=== PATIENT | male | born 1930 | race Caucasian/White ===

== ENCOUNTER 2016-09-07 12:42 | Inpatient (IN) | payer OTHER, MEDICARE ==
[~2016-09-07] VITALS: Ht 182.9 cm; Wt 72.6 kg
[~2016-09-07 12:42] MED LIST: ATENOLOL50 MG PO; AUGMENTIN 875 M1 TAB PO; BISAC-EVAC10 M1 PR; BISACODYL5 M1 PO; COUMADIN 2.5 M2.5 MG PO; DONEPEZIL HCL10 M1 PO; DONEPEZIL HYDROC5 MG PO; FENOFIBRATE134 M1 PO; FERROUS SULFAT325 M2 PO; FINASTERIDE5 M1 PO; FUROSEMIDE20 MG PO; GABAPENTIN100 M2 PO; GARLIC OIL1000 M1 PO; K-TAB ER20 MEQ PO; LOVASTATIN10 M1 PO; METOPROLOL SUCC25 M1 PO; MIRALAX119 GM PO; PERCOCET 5-3251 EACH PO; SENNA-TIME S T1 EACH PO; TOPROL XL50 M1 PO; TRAMADOL HCL50 M1; TYLENOL #31 TAB PO; TYLENOL325 M1 PO; VESICARE5 M1 PO; ZESTRIL20 M1 PO
--- NOTE | 2016-09-07 15:17 | ED GI/GU/ABDOMINAL COMPLAINT ---
History of Present Illness General Chief Complaint: Nausea, Vomiting, Diarrhea Stated Complaint: DIARRHEA SINCE THIS AM, "ON TOILET SINCE 7:30AM Source: patient, family, old records Exam Limitations: dementia Vital Signs & Intake/Output Vital Signs & Intake/Output Vital Signs Date Time Temp Pulse Resp B/P Pulse O2 O2 Flow FiO2 Ox Delivery Rate 09/08 0846 138/68 09/08 0832 97.4 65 20 140/80 96 Room Air 09/07 2352 97.3 65 20 138/86 97 Room Air 09/07 2310 98.0 75 18 151/74 92 Room Air 09/07 2047 97.2 63 18 179/87 99 Room Air 09/07 1900 Room Air 09/07 1627 98.2 63 18 170/90 100 Room Air 09/07 1431 97.8 69 18 146/89 99 09/07 1249 97.7 70 20 153/76 97 Room Air ED Intake and Output 09/08 0000 09/07 1200 Intake Total 500 Output Total 100 Balance 400 Intake, IV 500 Output, Urine 100 Patient 160 lb Weight Allergies Coded Allergies: NO KNOWN ALLERGIES (02/09/16) Reconcile Medications Acetaminophen (Tylenol) 325 MG TABLET 650 MG PO Q4P PRN PAIN SCALE 1-3 (MILD) Donepezil HCl 10 MG TABLET 1 TAB PO QHS DEMENTIA (Reported) Fenofibrate,Micronized (Fenofibrate) 134 MG CAPSULE 1 CAP PO DAILY CHOLESTEROL (Reported) Ferrous Sulfate 325 MG TABLET.DR 325 MG PO DAILY SUPPLEMENT Finasteride 5 MG TABLET 1 TAB PO DAILY PROSTATE (Reported) Gabapentin 100 MG CAPSULE 1 CAP PO QPM NERVE PAIN (Reported) Garlic (Garlic Oil) 1,000 MG CAPSULE 1 CAP PO DAILY SUPPLEMENT (Reported) Lovastatin 10 MG TABLET 1 TAB PO QPM CHOLESTEROL (Reported) Metoprolol Succinate 25 MG TAB 1 TAB PO DAILY BP (Reported) Potassium Chloride (K-Tab ER) 20 MEQ TABLET.ER 1 TAB PO DAILY SUPPLEMENT ( Reported) Solifenacin Succinate (Vesicare) 5 MG TABLET 1 TAB PO DAILY BLADDER (Reported ) Triage Note: PT TO TRIAGE WITH HIS DAUGHTER, DAUGHTER STATES THAT PT HAS DEMENTIA AND THAT ALL MORNING HE HAS BEEN ON TOILET NON STOP TRYING TO MOVE HIS BOWELS AND CAN'T. 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 yes HPI: Patient presents for evaluation of multiple trips to the bathroom with "mixed" stool and feelings of dysuria and a lot of drooling. The patient has dementia and cannot provide history. syptoms have been severe, frequent and debilitating. There has been no associated fever, cold symptoms, dyspnea, recent travel, known ill contacts or medication changes. He does have a history of constipation although not recently. daughter concerned that the pt has become dehydrated (he has been too weak to ambulate on his own). nothing seems to make him better. Past History Travel History Traveled to [place] past 21 day No Medical History Any Pertinent Medical History? see below for history Neurological: dementia EENT: NONE Cardiovascular: CHF, hypertension, hyperlipidemia, PACEMAKER Respiratory: NONE Gastrointestinal: diverticulosis, no polyps GI BLEED Hepatic: NONE Renal: NONE Musculoskeletal: NONE Psychiatric: NONE Endocrine: NONE Blood Disorders: NONE Cancer(s): SKIN CANCER Other Medical Hx: hyperlipidemia, chronic venous insufficiency and right heart dysfunction and dementia. History of MRSA: No History of VRE: No History of CDIFF: No Pneumonia Vaccine: 07/16/08 Tetanus Vaccine: 04/23/15 Surgical History Surgical History: SKIN CANCER REMOVAL pacemaker Psychosocial History Who do you live with Spouse Services at Home Physical Therapy What is your primary language Sinhala Tobacco Use: Never used ETOH Use: denies use Illicit Drug Use: denies illicit drug use Family History Hx Contributory? No Review of Systems Review of Systems Constitutional: Reports: no symptoms. EENTM: Reports: no symptoms. Respiratory: Reports: no symptoms. Cardiovascular: Reports: no symptoms. GI: Reports: see HPI. Genitourinary: Reports: no symptoms. Musculoskeletal: Reports: no symptoms. Skin: Reports: no symptoms. Neurological/Psychological: Reports: no symptoms. Hematologic/Endocrine: Reports: no symptoms. Immunologic/Allergic: Reports: no symptoms. All Other Systems: Reviewed and Negative Physical Exam Physical Exam Gastrointestinal: SEE BELOW Comments: Gen.: Well-nourished, well-developed, no acute respiratory distress. Head: Normocephalic, atraumatic. Eyes: Normal inspection bilaterally Ears: Normal inspection bilaterally Nose: Normal inspection Throat/mouth : Moist mucosa Neck: Supple, full range of motion, no goiter Heart: Regular rate and rhythm, no murmurs rubs or gallops Lungs: Clear to auscultation bilaterally with normal air entry Chest: Nontender Back: Normal range of motion Abdomen: Soft, nontender, nondistended, normal bowel sounds Extremities: Normal range of motion grossly, equal radial pulses, no cyanosiS Neurologic: Cranial nerves grossly intact, speech is clear Skin: warm and dry Psychiatric: Calm, cooperative, no apparent delusions or hallucinations Core Measures ACS in differential dx? No Severe Sepsis Present: No Septic Shock Present: No Progress Differential Diagnosis: bowel obstruction, colon cancer, diverticulitis, ischemic bowel, inflamm bowel dis, perforated viscous Plan of Care: Orders Procedure Date/time Status Clear Liquid Diet 09/08 B Active Code Status 09/08 1056 Active CBC WITHOUT DIFFERENTIAL 09/08 06 Complete BASIC ELECTROLYTES PLUS BUN&CR 09/08 0600 Complete Wound Care/Dressing 09/08 0039 Active Turn and Reposition 09/08 0039 Active Skin Integrity Protocol 09/08 0039 Active Precautions 09/08 0039 Active Lab Add-on Test 09/08 0038 Active CULTURE,STOOL 09/08 0031 Active PT Evaluate & Treat 09/08 0029 Active Pathway - chart 09/08 0029 Active House Staff 09/08 0029 Active Patient Data 09/08 0029 Active Code Status 09/08 0029 Complete Therapeutic Activities 09/08 UNK Complete Gait Training 09/08 UNK Complete House Staff 09/08 UNK Active VTE Mechanical Prophylaxis 09/08 UNK Active Patient Safety Monitor 09/08 UNK Active Teach/Educate 09/07 234 Active Nutritional Intake, Monitor 09/07 2347 Active Isolation 09/07 2347 Active Patient Care Conference 09/07 2347 Active EKG 09/07 2322 Active Patient Data 09/07 2146 Active OXYGEN SETUP (GEN) 09/07 2028 Active Saline Lock 09/07 2028 Active Vital Signs 09/07 2028 Active Activity/Ambulation 09/07 2028 Active Code Status 09/07 2028 Complete Admit to inpatient 09/07 1939 Active Intake & Output 09/07 1550 Active MAGNESIUM 09/07 1530 Complete URINALYSIS 09/07 1516 Complete LIPASE 09/07 1516 Complete COMPREHENSIVE METABOLIC PANEL 09/07 1516 Complete CBC WITHOUT DIFFERENTIAL 09/07 1516 Complete Current Medications Sig/Matthew Start time Last Medication Dose Stop Time Status Admin Atorvastatin Calcium 10 MG QPM 09/08 2200 AC (Lipitor) Donepezil HCl 10 MG QPM 09/08 2200 AC (Aricept) Gabapentin 100 MG QPM 09/08 2200 AC (Neurontin) Magnesium Sulfate 1 GM Q2H 09/08 1100 AC (Mag Sulfate) 09/08 1459 Dextrose/Water 100 ML (D5W) Olanzapine 2.5 MG Q8 PRN 09/08 1100 AC (Zyprexa 2.5MG) Acetaminophen 650 MG Q4P PRN 09/08 0045 AC (Tylenol) Laboratory Tests 09/08/16 0630: Anion Gap 10, Estimated GFR > 60, BUN/Creatinine Ratio 18.0, CBC w Diff NO MAN DIFF REQ, RBC 4.74, MCV 99.2 H, MCH 32.8 H, RDW 14.8 H, MPV 8.5, Gran % 60.6, Lymphocytes % 26.1, Monocytes % 10.6 H, Eosinophils % 2.4, Basophils % 0.3, Absolute Granulocytes 4.5, Absolute Lymphocytes 1.9, Absolute Monocytes 0.8 H, Absolute Eosinophils 0.2, Absolute Basophils 0, PUBS MCHC 33.1 09/07/16 1545: Urine Color YEL, Urine Clarity CLEAR, Urine pH 6.5, Ur Specific [place] 1.020, Urine Protein NEG, Urine Ketones NEG, Urine Nitrite NEG, Urine Bilirubin NEG, Urine Urobilinogen 2.0 H, Ur Leukocyte Esterase NEG, Ur Microscopic EXAM NOT REQUIRED, Urine Hemoglobin NEG, Urine Glucose NEG 09/07/16 1530: Anion Gap 10, Estimated GFR > 60, BUN/Creatinine Ratio 19.1, Glucose 83, Calcium 9.2, Magnesium 1.7, Total Bilirubin 0.9, AST 23, ALT 26, Alkaline Phosphatase 52 , Total Protein 6.9, Albumin 3.6, Globulin 3.3, Albumin/Globulin Ratio 1.1, Lipase 175, CBC w Diff NO MAN DIFF REQ, RBC 4.86, MCV 98.6 H, MCH 32.9 H, RDW 14.4, MPV 7.3 L, Gran % 77.0 H, Lymphocytes % 14.6 L, Monocytes % 7.8, Eosinophils % 0.5, Basophils % 0.1, Absolute Granulocytes 7.1 H, Absolute Lymphocytes 1.3, Absolute Monocytes 0.7 H, Absolute Eosinophils 0, Absolute Basophils 0, PUBS MCHC 33.3 Microbiology 09/08 0031 STOOL: Stool Culture - ORD Initial ED EKG: none Comments: 09/07/2016 6:49:13 PM patient's case discussed with Dr. Thibodeaux. To be admitted. Departure Departure Disposition: STILL A PATIENT Condition: Stable Clinical Impression Primary Impression: Diverticulitis large intestine Qualifiers: Diverticulitis bleeding: without bleeding Diverticulitis complication: without perforation or abscess Qualified Code: K57.32 - Diverticulitis of large intestine without perforation or abscess without bleeding Secondary Impressions: Gait instability, Weakness generalized Referrals: BARBARA ZHU,ELIZABETH Esparza (PCP/Family) Departure Forms: Customer Survey General Discharge Information
[2016-09-07 15:37] LABS: ABSOLUTE BASOPHIL COUNT 0 /CUMM (0.0-0.2); ABSOLUTE EOSINOPHIL COUNT 0 /CUMM (0.0-0.7); ABSOLUTE GRANULOCYTE CT 7.1 /CUMM (1.4-6.5); ABSOLUTE LYMPH COUNT 1.3 /CUMM (1.2-3.4); ABSOLUTE MONOCYTE COUNT 0.7 /CUMM (0.10-0.60); BASOPHIL % 0.1 % (0.0-2.0); EOSINOPHIL % 0.5 % (0-5); MEAN CORPUSCULAR HGB 32.9 PG (27.0-31.0); MEAN CORPUSCULAR HGB CONC 33.3 G/DL (33.0-37.0); MEAN CORPUSCULAR VOLUME 98.6 FL (80.0-94.0); MEAN PLATELET VOLUME 7.3 FL (7.4-10.4); PLATELET COUNT 186 /CUMM (130-400); RBC DISTRIBUTION WIDTH 14.4 % (11.5-14.5); RED BLOOD CELL CT 4.86 /CUMM (4.70-6.10); WHITE BLOOD CELL COUNT 9.3 /CUMM (4.8-10.8)
--- NOTE | 2016-09-07 17:10 | CT SCAN REPORT ---
EXAMINATION: CT ABDOMEN AND PELVIS WITH CONTRAST CLINICAL INFORMATION: Frequent bowel movements. Dysuria. COMPARISON: CT abdomen and pelvis without contrast 12/23/2015. TECHNIQUE: Multidetector volumetric imaging was performed of the abdomen and pelvis before and after the IV administration of 94 mL of Optiray 320 intravenous contrast. Sagittal and coronal reformatted images were obtained on the technologist's workstation. DLP: 372 mGy-cm FINDINGS: LUNG BASES: Evaluation of the included lung bases demonstrates mild cardiomegaly. No pleural or pericardial effusions are identified. There are partially visualized cardiac pacemaker wires within the right atrium and right ventricle. There is minimal dependent bibasilar atelectasis. LIVER, GALLBLADDER, AND BILIARY TREE: There is diffuse low-attenuation of the liver parenchyma, indicative of diffuse hepatic steatosis. Within the inferior right hepatic lobe, there is a 2.2 x 2.6 cm fluid attenuating lesion, favored to represent a small hepatic cyst. There is an additional 0.6 cm hypoattenuating lesion within the left hepatic lobe, also favored to represent a small hepatic cyst. Within the subcapsular region of segment 3 of the liver, there is a 1.0 cm enhancing lesion (series 2, image 19). This lesion is incompletely characterized on this examination but could reflect a small flash filling hemangioma. The gallbladder is physiologically distended. A punctate hyperdense focus layering dependently within the gallbladder lumen could reflect artifact versus a gallstone. No gallbladder wall thickening or pericholecystic inflammatory changes are identified. PANCREAS: Unremarkable. SPLEEN: Unremarkable. ADRENAL GLANDS: Thickening of the bilateral adrenal glands, left greater than right, not significantly changed relative to the prior examination. KIDNEYS AND URETERS: Evaluation of the bilateral kidneys and renal collecting systems is notable for a 1.9 cm simple renal cortical cyst arising from the midpole of the left kidney. The kidneys are otherwise symmetric in size and enhance homogeneously, without solid parenchymal lesions. No renal or ureteral stones are identified and there is no hydroureteronephrosis of either kidney or renal collecting system. BLADDER: Unremarkable. GASTROINTESTINAL TRACT: Normal anatomic orientation of the stomach relative to the duodenum. Normal caliber of abdominal and pelvic bowel loops, without evidence of obstruction or ileus. No circumferential bowel wall thickening with surrounding inflammatory changes to suggest an underlying infectious or inflammatory enterocolitis. Nonvisualization of the appendix, which may be surgically absent. Pancolonic diverticulosis, most significant along the descending and rectosigmoid colon. There is a mild circumferential thickening with mild inflammatory changes along a segment of the sigmoid colon, spanning approximately 2 cm in length within the right lower abdomen. This could reflect a developing acute sigmoid diverticulitis. No organizing intra-abdominal fluid collections or free intraperitoneal air. ABDOMINAL WALL: Small fat-containing bilateral inguinal hernias. LYMPH NODES: No significant abdominal or pelvic adenopathy. VASCULAR: Scattered atherosclerosis of the abdominal aorta and its branching vessels. Redemonstrated is an infrarenal abdominal aortic aneurysm, measuring approximately 4.2 x 4.3 cm in transverse and AP dimensions respectively; previously, 4.1 x 4.2 cm in similar dimensions. There is peripheral mural thrombus along the anterior aspect of the antrum aneurysm sac. There is scattered atherosclerosis of the branching vessels of the abdominal aorta. 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 The proximal segment of the right common iliac artery is ectatic and is visualized measuring up to 1.6 cm in AP diameter (series 2, image 56). PELVIC VISCERA: The prostate gland is enlarged and is visualized measuring approximately 4.4 x 5.0 cm in AP and transverse dimensions respectively. There is a reservoir within the left hemipelvis corresponding to a partially visualized penile implant. OSSEOUS STRUCTURES: No acute osseous abnormality. Demineralization of the visualized bones. Moderate multilevel facet arthrosis of the imaged lumbar spine, most significant along the lower lumbar spine. No acute vertebral compression deformities. No visible destructive osseous lesions. IMPRESSION: 1. Pancolonic diverticulosis, most significant along the descending and rectosigmoid colon. Mild circumferential thickening and inflammatory changes along the segment of the sigmoid colon, spanning approximately 2 cm in length within the right lower quadrant of the abdomen. This could reflect a developing acute sigmoid diverticulitis. 2. Diffuse hepatic steatosis. Stable fluid attenuating lesions within the right and left hepatic lobes, as noted above. 3. Incidental 1.0 cm enhancing lesion within the left hepatic lobe. This lesion is incompletely characterized on this examination but could reflect a small flash filling hemangioma. 4. Stable aneurysmal dilatation of the infrarenal abdominal aorta, which is visualized measuring 4.1 x 4.2 cm in transverse and AP dimensions respectively.
[2016-09-07 23:52] VITALS: BP 138/86
--- NOTE | 2016-09-08 00:09 | History & Physical ---
SAMUEL ZHU,YUDY 09/08/16 0009: General Information and HPI MD Statement: I have seen and personally examined LUIS CARLOS JOHNSTON SR and documented this H&P. The patient is a 85 year old M who presented with a patient stated chief complaint of []. 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 History was taken from the Daughter as a patient is not oriented to time,and place. According to the daughter, her both parents are demented and are taken care by 24-hour incident coordinator. His father started having drooling of saliva since last 3 days. She denies any symptoms of stroke including facial weakness or weakness of any part of the body , seizures, and loss of consciousness. Today, he started having increase frequency of bowel movements. Stools are different in consistency, sometimes watery, sometimes Willard. She also told that one time she saw the blood on the toilet paper after wiping. She denies that her father had not had any fever, nausea, vomiting, chest pain, abdominal pain, sick contacts, recent use of antibiotic, URI symptoms, sinusitis , headache, seizures, and consciousness, dizziness, fall. Personal history-he walk with a walker and sometimes cane. He lives with his daughter. His cashier receptionist is Dr. Delcid and vascular doctor is Dr. Ramirez Family history-father of colon cancer, mother had pacemaker Allergies/Medications Allergies: Coded Allergies: NO KNOWN ALLERGIES (02/09/16) Home Med list Acetaminophen (Tylenol) 325 MG TABLET 650 MG PO Q4P PRN PAIN SCALE 1-3 (MILD) Donepezil HCl 10 MG TABLET 1 TAB PO QHS DEMENTIA (Reported) Fenofibrate,Micronized (Fenofibrate) 134 MG CAPSULE 1 CAP PO DAILY CHOLESTEROL (Reported) Ferrous Sulfate 325 MG TABLET.DR 325 MG PO DAILY SUPPLEMENT Finasteride 5 MG TABLET 1 TAB PO DAILY PROSTATE (Reported) Gabapentin 100 MG CAPSULE 1 CAP PO QPM NERVE PAIN (Reported) Garlic (Garlic Oil) 1,000 MG CAPSULE 1 CAP PO DAILY SUPPLEMENT (Reported) Lovastatin 10 MG TABLET 1 TAB PO QPM CHOLESTEROL (Reported) Metoprolol Succinate 25 MG TAB 1 TAB PO DAILY BP (Reported) Potassium Chloride (K-Tab ER) 20 MEQ TABLET.ER 1 TAB PO DAILY SUPPLEMENT ( Reported) Solifenacin Succinate (Vesicare) 5 MG TABLET 1 TAB PO DAILY BLADDER (Reported ) Past History Travel History Traveled to [place] past 21 day No Medical History Blood Transfusion Hx: Yes Neurological: dementia EENT: NONE Cardiovascular: CHF, hypertension, hyperlipidemia, PACEMAKER Respiratory: NONE Gastrointestinal: diverticulosis, no polyps GI BLEED Hepatic: NONE Renal: NONE Musculoskeletal: NONE Psychiatric: NONE Endocrine: NONE Blood Disorders: NONE Cancer(s): SKIN CANCER Other Medical Hx: hyperlipidemia, chronic venous insufficiency and right heart dysfunction and dementia. History of MRSA: No History of VRE: No History of CDIFF: No Isolation History: Special Contact (Enteric) Pneumonia Vaccine: 07/16/08 Tetanus Vaccine: 04/23/15 Surgical History Surgical History: SKIN CANCER REMOVAL pacemaker Past Family/Social History Psychosocial History Where do you live? Home Who Do You Live With? spouse Services at Home: Physical Therapy Primary Language: Andorran Smoking Status: Unknown If Ever Smoked ETOH Use: denies use Illicit Drug Use: denies illicit drug use Functional Ability ADLs Independent: dressing, eating, toileting, bathing. Ambulation: independent IADLs Unknown: shopping, finances, food prep, telephone, transportation, medication admin. Review of Systems Review of Systems Constitutional: Reports: weakness. Denies: chills, diaphoresis, fever, malaise, unexplained weight loss. EENTM: Denies: no symptoms. Cardiovascular: Denies: no symptoms. Respiratory: Denies: cough, hemoptysis, orthopnea, short of breath, sputum production. GI: Reports: diarrhea, bowel incontinence, nausea, changes in stool. Denies: abdominal pain, bloating, constipation, distention, melena, bloody stool. Genitourinary: Denies: no symptoms. Musculoskeletal: Denies: no symptoms. Skin: Reports: erythema. Neurological/Psychological: Reports: anxiety, confusion, dementia. Exam & Diagnostic Data Last 24 Hrs of Vital Signs/I&O Vital Signs Date Time Temp Pulse Resp B/P Pulse O2 O2 Flow FiO2 Ox Delivery Rate 09/07 2352 97.3 65 20 138/86 97 Room Air 09/07 2310 98.0 75 18 151/74 92 Room Air 09/07 2047 97.2 63 18 179/87 99 Room Air 09/07 1900 Room Air 09/07 1627 98.2 63 18 170/90 100 Room Air 09/07 1431 97.8 69 18 146/89 99 09/07 1249 97.7 70 20 153/76 97 Room Air Intake & Output 09/08 0800 09/08 0000 09/07 1600 Intake Total 500 Output Total 100 Balance 400 Intake, IV 500 Output, Urine 100 Patient 72.575 kg 72.575 kg Weight Physical Exam General Appearance Alert, Cooperative, No Acute Distress, oriented to place Skin redness of the left chick, bruises, thinning of skin HEENT Atraumatic, PERRLA, EOMI Neck Supple, No JVD Cardiovascular Normal S1, Normal S2 Lungs Clear to Auscultation Abdomen Soft, No Tenderness Neurological Normal Speech Extremities bilateral pitting edema Vascular Normal Pulses, Pulses Symmetrical Assessment/Plan Assessment: Patient is an 85-year-old male with a significant past medical history of hypertension, hyperlipidemia, heart failure, sick sinus syndrome on pacemaker, paroxysmal atrial fibrillation, not on any anticoagulation because of risk of fall, peripheral vascular disease including lymphedema and venous insufficiency, 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, dementia, presented with chief complaints of increased frequency of the bowel movement since one day and drooling of saliva since 3 days Vital signs at the time of admission - temperature 97.7, pulse 70, respiratory rate 20, blood pressure 153/76, SPO2 97% on room air CT abdomen and pelvis- Patel Colonic diverticulosis, with area of acute sigmoid diverticulitis hepatic asteatosis Incidental 1 centimeter enhancing lesion within the left hepatic lobe Aneurysm of infra renal abdominal aorta Plan - Acute sigmoid diverticulitis * We will admit the patient to general medical floor * We will start IV hydration, normal saline 75 per hour * We will start patient on inj Unasyn * We will send stool for culture and sensitivity, C. difficile * Stict intake output charting * We will continue all home medication Diet-clear liquid diet, we will advanced if patient tolerate it DVT prophylaxis - ALPS CODE STATUS-full code As Ranked By This Provider Problem List: 1. Dementia Qualifiers Dementia type: unspecified type Dementia behavioral disturbance: without behavioral disturbance Qualified Code: F03.90 - Unspecified dementia without behavioral disturbance Core Measures/Miscellaneous Severe Sepsis Severe Sepsis Present: No Septic Shock Septic Shock Present: No ARYAN CONNER 09/08/16 0443: Core Measures/Miscellaneous Acute Coronary Syndrome ACS Diagnosis: No Cerebrovascular Accident CVA/TIA Diagnosis: No Congestive Heart Failure CHF Diagnosis: No Venous Thromboembolism VTE Risk Factors: Age > 40, Cancer/chemo/oth therapy VTE Prophylaxis Ordered Inpt: Pharm- Lovenox No Mech VTE prophylaxis d/t: No contraindications No VTE Pharm Prophylaxis d/t: No contraindications VTE Diagnosis: No VTE Type: NONE VTE Confirmed by (Test): NONE Miscellaneous Documentation Attending Case Discussed With: ELIZABETH JIMENEZ MD Primary Care Physician: ELIZABETH JIMENEZ MD Patient sees these Specialists Elizabeth Jimenez MD Level of Patient Care: General Medicine Resident Review Statement Resident Statement: discussed with international trade teacher Other Findings: His 85-year-old man with past medical history of dementia, diastolic CHF, hypertension, hyperlipidemia, sick sinus syndrome status post pacemaker, paroxysmal A. 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 Patient was brought into ER by his daughter who stayed with him last night. According to daughter patient and his both her demented. They have 24 hours incident coordinator. Daughter noticed that since morning patient is going to bathroom more frequently to have a bowel movement. She was watery and sometimes willard, foul smelling and nonbloody. Her daughter noticed blood on toilet paper after wiping. She reports that patient did not complain of any nausea, vomiting, abdominal pain, dizziness or lightheadedness, chest pain or discomfort, palpitations. No sick contacts at home. She also reports that patient was having difficulty urinating and drooling heavily for last [address] Ramirez and Dr. Avinash Baca as an outpatient. Family history is positive for cardiac problems in mother and colon cancer in father. Vitals on admission: Temperature 97.7, pulse 70, respiratory rate 20, blood pressure 153/17 oxygen saturation 97% on room air Physical exam normal Labs including CBC, CMP, LFTs and UA normal CT abdomen pelvis with IV contrast was done that showed pancolonic diverticulosis and developing acute sigmoid diverticulitis. Diffuse hepatic steatosis, incidental 1 cm enhancing lesion within the left hepatic lobe. Stable aneurysmal dilatation of infrarenal abdominal aorta. Assessment and plan He is 85-year-old man with multiple comorbidities as mentioned above is going to be admitted to general medicine floor for Problem list 1. Acute sigmoid diverticulitis 2. Diarrhea and dehydration 3. Worsening dementia Plan We will admit patient to general medicine floor. Vitals every shift. Continue IV hydration. We will start patient on IV Unasyn. Please note patient got one time dose of ciprofloxacin and Flagyl in ER. Stool cultures. Will continue all his home medications. Clear liquid diet for now. Advance diet as tolerated. Pain management pathway. Regular diet. Subcutaneous Lovenox for DVT prophylaxis. Full code BARBARA ZHU,[facility] 09/08/16 1016: Attending MD Review Statement Attending Statement Attending MD Statement: examined this patient, discuss w/resident/PA/RESEARCH TECH, agreed w/resident/PA/RESEARCH TECH, discussed with family, reviewed EMR data (avail), discussed with nursing, discussed with case mgmt, reviewed images, amended to note Attending Assessment/Plan: This is a gentleman with paroxysmal atrial fibrillation on warfarin, previous pacemaker, mild dementia, diastolic heart disease, bilateral chronic lymphedema with chronic venous insufficiency with chronic skin changes in the leg, right heart dysfunction, BPH, came into the hospital with abd pain and diarrhea with a fall Issues include * Diverticulitis with abd pain * Dehydration * Paroxysmal atrial fibrillation with previous sick sinus syndrome status post pacemaker was on warfarin which is now being held due to recurrent fall * Hypertension hyperlipidemia stable * Chronic venous insufficiency and lower extremity edema which is also better with chronic venostasis changes as well which is stable * Mild dementia, with sundowning with delirium * Essential tremor gait imbalance * BPH * Stage II chronic kidney disease Plan * Continue antibiotics * Check labs only if needed * IV fluids for the next 24 hours * 2 g of magnesium IV * Start him on Zyprexa 2.5 mg by mouth every 8 when necessary only for significant confusion * Patient obviously is not safe to go back home as he has worsening dementia and memory difficulty gait imbalance would benefit from short-term rehabilitation * Continue current medications. Discontinue fenofibrate. Discussed with daughter and other family members before. Patient's prior wishes had always been to be DNR/DNI and the family wishes the same. Please change the CODE STATUS to DNR/DNI
--- NOTE | 2016-09-08 07:34 | PN- Housestaff ---
Subjective Follow-up For: Increased salivation Diarrhea Subjective: I saw and examined the patient today morning He is comfortably sitting in the chair, oriented to person only. Not oriented to place and time, currently searching his . overnight he remained stable without any diarrhea and increased salivation. No fever, chills, abdominal pain. Review of Systems Constitutional: Reports: see HPI, malaise, weakness. Comments: ROS cannot be appreciated well as per the patinet clinical condition Objective Last 24 Hrs of Vital Signs/I&O Vital Signs Date Time Temp Pulse Resp B/P Pulse O2 O2 Flow FiO2 Ox Delivery Rate 09/07 2352 97.3 65 20 138/86 97 Room Air 09/07 2310 98.0 75 18 151/74 92 Room Air 09/07 2047 97.2 63 18 179/87 99 Room Air 09/07 1900 Room Air 09/07 1627 98.2 63 18 170/90 100 Room Air 09/07 1431 97.8 69 18 146/89 99 09/07 1249 97.7 70 20 153/76 97 Room Air Intake & Output 09/08 0800 09/08 0000 09/07 1600 Intake Total 800 500 Output Total 100 Balance 800 400 Intake, IV 600 500 Intake, Oral 200 Output, Urine 100 Patient 72.575 kg 72.575 kg Weight Physical Exam General Appearance: Alert, Cooperative, No Acute Distress, oriented x 1, not to place and time. Skin: No Rashes, No Breakdown HEENT: Atraumatic, PERRLA Neck: Supple Cardiovascular: S1 and S2 heard, irregularly irregular Lungs: Clear to Auscultation, Normal Air Movement Abdomen: Normal Bowel Sounds, No Tenderness, distended Neurological: Normal Speech, Normal Tone, Sensation Intact Extremities: No Clubbing, No Cyanosis, 3+ pitting edema over both the feet Vascular: Normal Pulses, Pulses Symmetrical Current Medications: Current Medications Sig/Matthew Start time Last Medication Dose Route Stop Time Status Admin Acetaminophen 650 MG Q4P PRN 09/08 0045 AC PO Ampicillin Sodium/ 3,000 MG Q6 09/08 0600 AC Sulbactam Sodium IV Sodium Chloride 100 ML Atorvastatin Calcium 10 MG QPM 09/08 2200 AC PO Ciprofloxacin 0 .STK-MED ONE 09/07 1753 DC PO Ciprofloxacin 500 MG ONCE ONE 09/07 1730 DC 09/07 PO 09/07 173 1755 Donepezil HCl 10 MG QPM 09/08 2200 AC PO Enoxaparin Sodium 40 MG DAILY 09/08 1000 AC SC Fenofibrate 145 MG DAILY 09/08 1000 AC PO Ferrous Sulfate 325 MG DAILY 09/08 1000 AC PO Finasteride 5 MG DAILY 09/08 1000 AC PO Gabapentin 100 MG QPM 09/08 2200 AC PO Metoprolol Succinate 25 MG DAILY 09/08 1000 AC PO Metronidazole 500 MG ONCE ONE 09/07 1730 DC 09/07 N/A 1 UNIT IV 09/07 1829 1755 Oxybutynin Chloride 5 MG DAILY 09/08 1000 AC PO Potassium Chloride 20 MEQ DAILY 09/08 1000 AC PO Sodium Chloride 1,000 ML ONE TIME ONE 09/08 0030 AC 09/08 IV 09/08 1349 0114 Sodium Chloride 500 ML BOLUS ONE 09/07 1530 DC 09/07 IV 09/07 1629 1549 Last 24 Hrs of Lab/Chris Results Last 24 Hrs of Labs/Mics: Laboratory Tests 09/08/16 0630: Sodium Pending, Potassium Pending, Chloride Pending, Carbon Dioxide Pending, Anion Gap Pending, BUN Pending, Creatinine Pending, BUN/Creatinine Ratio Pending , CBC w Diff Pending, WBC Pending, RBC Pending, Hgb Pending, Hct Pending, MCV Pending, MCH Pending, RDW Pending, Plt Count Pending, MPV Pending, PUBS MCHC Pending 09/07/16 1545: Urine Color YEL, Urine Clarity CLEAR, Urine pH 6.5, Ur Specific [place] 1.020, Urine Protein NEG, Urine Ketones NEG, Urine Nitrite NEG, Urine Bilirubin NEG, Urine Urobilinogen 2.0 H, Ur Leukocyte Esterase NEG, Ur Microscopic EXAM NOT REQUIRED, Urine Hemoglobin NEG, Urine Glucose NEG 09/07/16 1530: Anion Gap 10, Estimated GFR > 60, BUN/Creatinine Ratio 19.1, Glucose 83, Calcium 9.2, Magnesium 1.7, Total Bilirubin 0.9, AST 23, ALT 26, Alkaline Phosphatase 52 , Total Protein 6.9, Albumin 3.6, Globulin 3.3, Albumin/Globulin Ratio 1.1, Lipase 175, CBC w Diff NO MAN DIFF REQ, RBC 4.86, MCV 98.6 H, MCH 32.9 H, RDW 14.4, MPV 7.3 L, Gran % 77.0 H, Lymphocytes % 14.6 L, Monocytes % 7.8, Eosinophils % 0.5, Basophils % 0.1, Absolute Granulocytes 7.1 H, Absolute Lymphocytes 1.3, Absolute Monocytes 0.7 H, Absolute Eosinophils 0, Absolute Basophils 0, PUBS MCHC 33.3 Microbiology 09/08 0031 STOOL: Stool Culture - ORD Lines/Diet/Fluids Lines: peripheral lines Assessment/Plan Assessment: Patient is a 85 YO M with PMH significant for Paroxysmal A.Fib not on warfarin due to fall risk (s/p pacemaker), HTN, HLD, bilteral chronic lymphaedema, sick sinus syndrome, 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 His daughter recently applied for conservator ship, waiting for reply. He walks with a walker but appears more confused and unstable now. He is placed with sitter due to unsteadyness, confusion and disorientation. His vitals are stable overnight Labs are unremarkable at presentation. Abdomen and plevis CT at admission Suggested pandiverticulosis all along the descending colon and sigmoid colon Mild diverticulitis in the RLQ of abdomen -->Simoid diverticulitis Infrarenal abdominal aorta dilatation of 4.1X4.2 cm He is admitted to general medicine floor Plan Sigmoid colon diverticulitis * Started on unasyn to prevent bowel leakage and infection * IV fluids for the next 24 hrs with NS @75ml/hr * Clear liquid diet - will advance as tolerates. Hyperlipidemia * At home on atorvastatin and fenofibrate * Discontinued fenofibrate and continued on atorvastatin Peripheral Neuropathy * Gabapentine 100mg QPM Dementia * His home medication Donepezil 10mg is continued Hypertension * His home medication Metoprolol succinate 25mg BID is continued BPH * His home medication finasteride 5mg is continued Overactive bladder * on solifenacin succinate at home * placed on oxybutynin now. Paroxysmal A.Fib * Not on anticoagulation due to fall risk * Underwent permanent pacemaker placement in the past. DVT Prophylaxis * CO lovenox Code Status * DNR/DNI major concern for stay is placement. Problem List: 1. Gait instability 2. Dementia 3. Diverticulitis 4. Weakness Pain Ratin Pain Location: n/a Pain Goal: Pain 4 or less Pain Plan: Tylenol Q4 PRN and gabapentine Tomorrow's Labs & Rationales: NONE
[2016-09-08 08:04] LABS: ABSOLUTE BASOPHIL COUNT 0 /CUMM (0.0-0.2); ABSOLUTE EOSINOPHIL COUNT 0.2 /CUMM (0.0-0.7); ABSOLUTE GRANULOCYTE CT 4.5 /CUMM (1.4-6.5); ABSOLUTE LYMPH COUNT 1.9 /CUMM (1.2-3.4); ABSOLUTE MONOCYTE COUNT 0.8 /CUMM (0.10-0.60); BASOPHIL % 0.3 % (0.0-2.0); EOSINOPHIL % 2.4 % (0-5); GRANULOCYTE % 60.6 % (42.2-75.2); MEAN CORPUSCULAR HGB 32.8 PG (27.0-31.0); MEAN CORPUSCULAR HGB CONC 33.1 G/DL (33.0-37.0); MEAN CORPUSCULAR VOLUME 99.2 FL (80.0-94.0); MEAN PLATELET VOLUME 8.5 FL (7.4-10.4); PLATELET COUNT 175 /CUMM (130-400); RBC DISTRIBUTION WIDTH 14.8 % (11.5-14.5); RED BLOOD CELL CT 4.74 /CUMM (4.70-6.10); WHITE BLOOD CELL COUNT 7.4 /CUMM (4.8-10.8)
--- NOTE | 2016-09-08 08:04 | Discharge Summary ---
Visit Information Visit Dates Admission Date: 09/07/16 Discharge Date: 09/11/16 Hospital Course Course Attending Physician: ELIZABETH JIMENEZ MD Primary Care Physician: ELIZABETH JIMENEZ MD Hospital Course: 85-year-old man with past medical history of dementia, diastolic CHF, hypertension, hyperlipidemia, sick sinus syndrome status post pacemaker, paroxysmal A. 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 Patient was brought into ER by his daughter. Daughter noticed that since morning patient is going to bathroom more frequently to have a bowel movement. She was watery and sometimes willard, foul smelling and nonbloody. Her daughter noticed blood on toilet paper after wiping. Vitals on admission: Temperature 97.7, pulse 70, respiratory rate 20, blood pressure 153/17 oxygen saturation 97% on room air Physical exam normal Labs including CBC, CMP, LFTs and UA normal CT abdomen pelvis with IV contrast was done that showed pancolonic diverticulosis and developing acute sigmoid diverticulitis. Diffuse hepatic steatosis, incidental 1 cm enhancing lesion within the left hepatic lobe. Stable aneurysmal dilatation of infrarenal abdominal aorta. He was given a dose of ciprofloxacin and flagyl in the ED. He was admitted to the general medicine floor for further management of his problems. Problem List: 1) Acute sigmoid diverticulitis with dehydration: Patient was started on IV fluids and Unasyn for antibiotic coverage, changed to augmentin BID for a total of 7days. He was initially started on a clear liquid diet, which was advanced as tolerated. 2) He was continued on his other home medications. Fenofibrate is discontinued. 3) DVT PPx: Sub Q Lovenox 4) Code Status: DNR/DNI Complications: None Allergies: Coded Allergies: NO KNOWN ALLERGIES (02/09/16) Significant Procedures: None Disposition Summary Disposition Principal Diagnosis: Diverticulitis Additional Diagnosis: Hypertension Hyperlipidemia Heart failure Sick sinus syndrome on pacemaker Paroxysmal atrial fibrillation, not on any anticoagulation because of risk of fall peripheral Vascular disease including lymphedema and venous insufficiency Squamous cell carcinoma of the skin status post resection Dementia Discharge Disposition: SNF Discharge Instructions General Discharge Information Code Status: Do Not Resucitate/Intubat Patient's Diet: Heart Healthy Patient's Activity: As tolerated Follow-Up Instructions/Appts: Please make an appointment to see your PCP within one week from discharge. Medications at Discharge Discharge Medications: Stop taking the following medications: Fenofibrate,Micronized (Fenofibrate) 134 MG CAPSULE ORAL DAILY Continue taking these medications: Finasteride (Finasteride) 5 MG TABLET 1 Tablet ORAL DAILY Comments: Last Taken: 09/11/16 Time: 9 AM Potassium Chloride (K-Tab ER) 20 MEQ TABLET.ER 1 Tablet ORAL DAILY Lovastatin (Lovastatin) 10 MG TABLET 1 Tablet ORAL Every night Comments: ALTERNATIVE MED, ATORVASTATIN ADMINISTERED WHILE IN HOSPITAL Last Taken: 09/10/16 Time: 10 PM Solifenacin Succinate (Vesicare) 5 MG TABLET 1 Tablet ORAL DAILY Comments: NOT GIVEN Garlic (Garlic Oil) 1,000 MG CAPSULE 1 Capsule ORAL DAILY Comments: NOT GIVEN Donepezil HCl (Donepezil HCl) 10 MG TABLET 1 Tablet ORAL TAKE AT BEDTIME Qty = 60 Comments: Last Taken: 09/10/16 Time: 10 PM Ferrous Sulfate (Ferrous Sulfate) 325 MG TABLET.DR 325 Milligram ORAL DAILY Days = 30 Comments: Last Taken: 09/11/16 Time: 9 AM Metoprolol Succinate (Metoprolol Succinate) 25 MG TAB 1 Tablet ORAL DAILY Comments: PER PT Last Taken: 09/11/16 Time: 9 AM Gabapentin (Gabapentin) 100 MG CAPSULE 1 Capsule ORAL Every night Qty = 90 Comments: PER PT DAUGHTER Last Taken: 09/10/16 Time: 10 PM Acetaminophen (Tylenol) 325 MG TABLET 650 Milligram ORAL EVERY 4 HOURS NEEDED as needed for PAIN SCALE 1-3 ( MILD) Days = 30 Comments: NOT GIVEN Start taking the following new medications: Amoxicillin/Potassium Clav (Augmentin 875-125 Tablet) 875 MG-125 MG TABLET 1 Tablet ORAL TWICE DAILY Qty = 6 No Refills Comments: IV UNASYN GIVEN WHILE IN HOSPITAL Last Taken: 09/11/16 Time: 4 PM Copies To: ELIZABETH JIMENEZ MD Attending MD Review Statement Documenting Attending: ELIZABETH JIMENEZ MD
--- NOTE | 2016-09-08 08:07 | Patient Discharge Instructions ---
Discharge Instructions General Discharge Information You were seen/treated for: Acute Sigmoid Diverticulitis Special Instructions: Please make an appointment to see your PCP within one week from discharge. Diet Recommended Diet: Heart Healthy Activity Activity Self Limited: Yes Acute Coronary Syndrome Inclusion Criteria At DC or during hospital stay patient has or had the following: ACS DIAGNOSIS No Discharge Core Measures Meds if any: Prescribed or Continued at Discharge Meds if any: NOT Prescribed or Continued at Discharge Congestive Heart Failure Inclusion Criteria At DC or during hospital stay patient has or had the following: CHF DIAGNOSIS No Discharge Core Measures Meds if any: Prescribed or Continued at Discharge Meds if any: NOT Prescribed or Continued at Discharge Cerebrovascular accident Inclusion Criteria At DC or during hospital stay patient has or had the following: CVA/TIA Diagnosis No Discharge Core Measures Meds if any: Prescribed or Continued at Discharge Meds if any: NOT Prescribed or Continued at Discharge Venous thromboembolism Inclusion Criteria VTE Diagnosis No VTE Type NONE VTE Confirmed by (Test) NONE Discharge Core Measures - Per Current guidelines, there needs to be overlap - treatment for the first 5 days of Warfarin therapy. - If discharged on Warfarin prior to 5 days of - overlap therapy, the patient will need to be - assessed for post discharge needs including - *Post discharge parental anticoagulation - *Warfarin and/or parental anticoagulation education - *Follow up date to check INR post discharge At least 5 days overlap therapy as Inpatient No Meds if any: Prescribed or Continued at Discharge Note: Overlap Therapy is Warfarin and Anticoagulant Meds if any: NOT Prescribed or Continued at Discharge
[2016-09-08 08:32] VITALS: BP 140/80
--- NOTE | 2016-09-08 10:13 | Admission Certification ---
Admission Certification Certification Statement - As attending physician, I certify that at the time of - admission, based on clinical presentation, severity of - symptoms, need for further diagnostic testing and - therapeutic interventions, and risk of adverse outcomes - without in-hospital treatment, in my clinical assessment, - this patient requires an acute hospital stay for a minimum - of two nights or longer. I have also considered psychsocial - factors such as support system, advanced age, financial - issues, cognitive issues, and failed out-patient treatments, - past re-admission history, safety of patient, and lack of - compliance as applicable. Specific rationale supporting this admission is: Diverticulitis and delirium
--- NOTE | 2016-09-08 13:58 | PN- Pulmonary ---
Subjective HPI/Critical Care Issues: He is comfortably sitting in the chair, oriented to person only. Not oriented to place and time, currently searching his . overnight he remained stable without any diarrhea and increased salivation. No fever, chills, abdominal pain. Review of Systems Constitutional: Reports: see HPI, malaise, weakness. Comments: ROS cannot be appreciated well as per the [facility] clinical condition Objective Current Medications: Current Medications Sig/Matthew Start time Last Medication Dose Route Stop Time Status Admin Acetaminophen 650 MG Q4P PRN 09/08 0045 AC PO Ampicillin Sodium/ 3,000 MG Q6 09/08 0600 AC 09/08 Sulbactam Sodium IV 1152 Sodium Chloride 100 ML Atorvastatin Calcium 10 MG QPM 09/08 2200 AC PO Ciprofloxacin 0 .STK-MED ONE 09/07 1753 DC PO Ciprofloxacin 500 MG ONCE ONE 09/07 1730 DC 09/07 PO 09/07 1731 1755 Donepezil HCl 10 MG QPM 09/08 2200 AC PO Enoxaparin Sodium 40 MG DAILY 09/08 1000 AC 09/08 SC 0846 Fenofibrate 145 MG DAILY 09/08 1000 DC 09/08 PO 0846 Ferrous Sulfate 325 MG DAILY 09/08 1000 AC 09/08 PO 0846 Finasteride 5 MG DAILY 09/08 1000 AC 09/08 PO 0846 Gabapentin 100 MG QPM 09/08 2200 AC PO Magnesium Sulfate 1 GM Q2H 09/08 1100 AC Dextrose/Water 100 ML IV 09/08 1459 Metoprolol Succinate 25 MG DAILY 09/08 1000 AC 09/08 PO 0846 Metronidazole 500 MG ONCE ONE 09/07 1730 DC 09/07 N/A 1 UNIT IV 09/07 1829 1755 Olanzapine 2.5 MG Q8 PRN 09/08 1100 AC PO Oxybutynin Chloride 5 MG DAILY 09/08 1000 DC 09/08 PO 0846 Patient Medication 1 ED .STK-MED ONE 09/08 1349 DC Teaching ED 09/08 1350 Potassium Chloride 20 MEQ DAILY 09/08 1000 AC 09/08 PO 0846 Sodium Chloride 1,000 ML ONE TIME ONE 09/08 0030 DC 09/08 IV 09/08 1349 0114 Sodium Chloride 500 ML BOLUS ONE 09/07 1530 DC 09/07 IV 09/07 1629 1549 Vital Signs & I&O Last 24 Hrs of Vitals and I&O: Vital Signs Date Time Temp Pulse Resp B/P Pulse O2 O2 Flow FiO2 Ox Delivery Rate 09/08 0846 138/68 09/08 0832 97.4 65 20 140/80 96 Room Air 09/07 2352 97.3 65 20 138/86 97 Room Air 09/07 2310 98.0 75 18 151/74 92 Room Air 09/07 2047 97.2 63 18 179/87 99 Room Air 09/07 1900 Room Air 09/07 1627 98.2 63 18 170/90 100 Room Air 09/07 1431 97.8 69 18 146/89 99 Intake & Output 09/08 1600 09/08 0800 09/08 0000 Intake Total 800 Output Total Balance 800 Intake, IV 600 Intake, Oral 200 Patient 160 lb Weight Impression/Plan Impression/Plan Impression/Plan: Physical Exam General Appearance: Alert, Cooperative, No Acute Distress, oriented x 1, not to place and time. Skin: No Rashes, No Breakdown HEENT: Atraumatic, PERRLA Neck: Supple Cardiovascular: S1 and S2 heard, irregularly irregular Lungs: Clear to Auscultation, Normal Air Movement Abdomen: Normal Bowel Sounds, No Tenderness, distended Neurological: Normal Speech, Normal Tone, Sensation Intact Extremities: No Clubbing, No Cyanosis, 3+ pitting edema over both the feet Vascular: Normal Pulses, Pulses Symmetrical This is a gentleman with paroxysmal atrial fibrillation on warfarin, previous pacemaker, mild dementia, diastolic heart disease, bilateral chronic lymphedema with chronic venous insufficiency with chronic skin changes in the leg, right heart dysfunction, BPH, came into the hospital with abd pain and diarrhea with a fall Issues include * Diverticulitis with abd pain * Dehydration * Paroxysmal atrial fibrillation with previous sick sinus syndrome status post pacemaker was on warfarin which is now being held due to recurrent fall * Hypertension hyperlipidemia stable * Chronic venous insufficiency and lower extremity edema which is also better with chronic venostasis changes as well which is stable * Mild dementia, with sundowning with delirium * Essential tremor gait imbalance * BPH * Stage II chronic kidney disease Plan * Continue antibiotics * Check labs only if needed * IV fluids for the next 24 hours * 2 g of magnesium IV * Start him on Zyprexa 2.5 mg by mouth every 8 when necessary only for significant confusion * Patient obviously is not safe to go back home as he has worsening dementia and memory difficulty gait imbalance would benefit from short-term rehabilitation * Continue current medications. Discontinue fenofibrate. Discussed with daughter and other family members before. Patient's prior wishes had always been to be DNR/DNI and the family wishes the same. Please change the CODE STATUS to DNR/DNI
[2016-09-08 16:14] VITALS: BP 120/80
[2016-09-09 01:31] VITALS: BP 130/98
--- NOTE | 2016-09-09 08:12 | PN- Housestaff ---
Subjective Follow-up For: Sigmoid colon diverticulitis Subjective: I saw and examined the patient today morning. He is doing much better. No issues overnight. Review of Systems Constitutional: Reports: see HPI. Comments: ROS negative except the above. Objective Last 24 Hrs of Vital Signs/I&O Vital Signs Date Time Temp Pulse Resp B/P Pulse O2 O2 Flow FiO2 Ox Delivery Rate 09/09 0131 97.6 74 18 130/98 96 Room Air 09/08 1614 97.4 70 20 120/80 96 Room Air 09/08 1600 Room Air 09/08 0846 138/68 09/08 0832 97.4 65 20 140/80 96 Room Air Intake & Output 09/09 1600 09/09 0800 09/09 0000 Intake Total 200 1340 Output Total 1200 Balance 200 140 Intake, IV 200 500 Intake, Oral 840 Number 3 3 Bowel Movements Output, Urine 1200 Physical Exam General Appearance: Alert, Oriented X3, Cooperative Skin: No Rashes, No Breakdown, lesion on the face - probably from SCC HEENT: Atraumatic, PERRLA, EOMI Neck: Supple, No JVD Cardiovascular: Normal S1, Normal S2 Lungs: Clear to Auscultation, Normal Air Movement Abdomen: Normal Bowel Sounds, Soft, No Tenderness Neurological: Normal Gait, Normal Speech Extremities: No Clubbing, No Cyanosis, 2+ pitting edema over both the feet. Vascular: Pulses Symmetrical Current Medications: Current Medications Sig/Matthew Start time Last Medication Dose Route Stop Time Status Admin Acetaminophen 650 MG Q4P PRN 09/08 0045 AC PO Ampicillin Sodium/ 3,000 MG Q6 09/08 0600 AC 09/09 Sulbactam Sodium IV 0533 Sodium Chloride 100 ML Atorvastatin Calcium 10 MG QPM 09/08 2200 AC 09/08 PO 2150 Donepezil HCl 10 MG QPM 09/08 2200 AC 09/08 PO 2150 Enoxaparin Sodium 40 MG DAILY 09/08 1000 AC 09/08 SC 0846 Fenofibrate 145 MG DAILY 09/08 1000 DC 09/08 PO 0846 Ferrous Sulfate 325 MG DAILY 09/08 1000 AC 09/08 PO 0846 Finasteride 5 MG DAILY 09/08 1000 AC 09/08 PO 0846 Gabapentin 100 MG QPM 09/08 2200 AC 09/08 PO 2150 Magnesium Sulfate 1 GM Q2H 09/08 1100 DC 09/08 Dextrose/Water 100 ML IV 09/08 1459 1734 Metoprolol Succinate 25 MG DAILY 09/08 1000 AC 09/08 PO 0846 Olanzapine 2.5 MG Q8 PRN 09/08 1100 AC 09/09 PO 0059 Oxybutynin Chloride 5 MG DAILY 09/08 1000 DC 09/08 PO 0846 Patient Medication 1 ED .STK-MED ONE 09/08 1349 DC Teaching ED 09/08 1350 Potassium Chloride 20 MEQ DAILY 09/08 1000 AC 09/08 PO 0846 Sodium Chloride 1,000 ML Q13H 09/08 1900 DC 09/08 IV 09/09 0759 2000 Sodium Chloride 1,000 ML ONE TIME ONE 09/08 0030 DC 09/08 IV 09/08 1349 0114 Lines/Diet/Fluids Lines: peripheral lines Assessment/Plan Assessment: Patient is a 85 YO M with PMH significant for Paroxysmal A.Fib not on warfarin due to fall risk (s/p pacemaker), HTN, HLD, bilteral chronic lymphaedema, sick sinus syndrome, 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 His daughter recently applied for [employer] ship, waiting for reply. He walks with a walker but appears more confused and unstable now. He is placed with sitter due to unsteadyness, confusion and disorientation. His vitals are stable overnight Labs are unremarkable at presentation. 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 * Regular diet started. Hyperlipidemia * At home on atorvastatin and fenofibrate * Discontinued fenofibrate and continued on atorvastatin Peripheral Neuropathy * Gabapentine 100mg QPM Dementia * His home medication Donepezil 10mg is continued Hypertension * His home medication Metoprolol succinate 25mg BID is continued BPH * His home medication finasteride 5mg is continued Overactive bladder * on solifenacin succinate at home * placed on oxybutynin now. Paroxysmal A.Fib * Not on anticoagulation due to fall risk * Underwent permanent pacemaker placement in the past. DVT Prophylaxis * [place] lovenox Code Status * DNR/DNI major concern for stay is placement. Problem List: 1. Diverticulitis 2. Weakness 3. Afib Pain Ratin Pain Location: n/a Pain Goal: Pain 4 or less Pain Plan: Tylenol PRN Tomorrow's Labs & Rationales: NONE
[2016-09-09 08:57] VITALS: BP 134/78
--- NOTE | 2016-09-09 13:08 | PN- Att Addend ---
Attending Addendum Attending Brief Note Patient denies abdominal pain General Appearance: Alert, No Acute Distress Skin: Grossly normal HEENT: PEERLA Neck: Supple, No JVD Cardiovascular: Regular Rate, Normal S1, Normal S2, No Murmurs Lungs: Clear to Auscultation, Normal Air Movement Abdomen: Normal Bowel Sounds, Soft, No Tenderness Neurological: Normal Speech, Strength at 5/5 X4 Ext, Cranial Nerves 3-12 NL, Reflexes 2+ Extremities: No Clubbing, No Cyanosis, No Edema Vascular: Normal Pulses Assessment Patient denies abdominal pain. Tolerating regular diet. We will continue IV antibiotics at this time and plan for discharge to rehabilitation in 2 days. Plan Continue IV Unasyn Continue other home meds STR placement on Sunday Current Medications Sig/Matthew Start time Last Medication Dose Route Stop Time Status Admin Acetaminophen 650 MG Q4P PRN 09/08 0045 AC PO Ampicillin Sodium/ 3,000 MG Q6 09/08 0600 AC 09/09 Sulbactam Sodium IV 1257 Sodium Chloride 100 ML Atorvastatin Calcium 10 MG QPM 09/08 2200 AC 09/08 PO 2150 Donepezil HCl 10 MG QPM 09/08 2200 AC 09/08 PO 2150 Enoxaparin Sodium 40 MG DAILY 09/08 1000 AC 09/09 SC 1048 Ferrous Sulfate 325 MG DAILY 09/08 1000 AC 09/09 PO 1048 Finasteride 5 MG DAILY 09/08 1000 AC 09/09 PO 1048 Gabapentin 100 MG QPM 09/08 2200 AC 09/08 PO 2150 Magnesium Sulfate 1 GM Q2H 09/08 1100 DC 09/08 Dextrose/Water 100 ML IV 09/08 1459 1734 Metoprolol Succinate 25 MG DAILY 09/08 1000 AC 09/09 PO 1051 Olanzapine 2.5 MG Q8 PRN 09/08 1100 AC 09/09 PO 0059 Patient Medication 1 ED .STK-MED ONE 09/08 1349 DC Teaching ED 09/08 1350 Potassium Chloride 20 MEQ DAILY 09/08 1000 AC 09/09 PO 1048 Sodium Chloride 1,000 ML Q13H 09/08 1900 DC 09/08 IV 09/09 0759 2000 Sodium Chloride 1,000 ML ONE TIME ONE 09/08 0030 DC 09/08 IV 09/08 1349 0114 Vital Signs Date Time Temp Pulse Resp B/P Pulse O2 O2 Flow FiO2 Ox Delivery Rate 09/09 1051 180/100 09/09 0857 97.1 73 20 134/78 95 09/09 0131 97.6 74 18 130/98 96 Room Air 09/08 1614 97.4 70 20 120/80 96 Room Air 09/08 1600 Room Air
[2016-09-09 17:33] VITALS: BP 167/92
[2016-09-10 00:23] VITALS: BP 150/104
[2016-09-10 06:00] VITALS: BP 154/92
--- NOTE | 2016-09-10 07:57 | PN- Housestaff ---
Subjective Follow-up For: Acute sigmoid diverticulitis Diarrhea Subjective: Comfortable. No comaplints. Afebrile overnight w/ no complaints. Vitals stable. Complained of abdominal discomfort. Review of Systems Constitutional: Reports: see HPI. Objective Last 24 Hrs of Vital Signs/I&O Vital Signs Date Time Temp Pulse Resp B/P Pulse O2 O2 Flow FiO2 Ox Delivery Rate 09/10 0600 98 154/92 09/10 0023 98.3 78 20 150/104 96 09/09 1733 97.3 74 20 167/92 96 Room Air 09/09 1051 180/100 09/09 0857 97.1 73 20 134/78 95 Intake & Output 09/10 0800 09/10 0000 09/09 1600 Intake Total 533 003 7982 Output Total 325 1100 Balance -105 480 640 Intake, IV 100 120 Intake, Oral 579 019 6289 Number 2 1 Bowel Movements Output, Urine 325 1100 Patient 160 lb Weight Physical Exam General Appearance: No Acute Distress Other Physical Findings: AAOx2 Skin: No Rashes, No Breakdown, lesion on the face - probably from SCC HEENT: Atraumatic, PERRLA, EOMI Neck: Supple, No JVD Cardiovascular: Normal S1, Normal S2 Lungs: Clear to Auscultation, Normal Air Movement Abdomen: Normal Bowel Sounds, Soft, No Tenderness Neurological: Normal Gait, Normal Speech Extremities: No Clubbing, No Cyanosis, 2+ pitting edema over both the feet. Vascular: Pulses Symmetrical Current Medications: Current Medications Sig/Matthew Start time Last Medication Dose Route Stop Time Status Admin Acetaminophen 650 MG Q4P PRN 09/08 0045 AC PO Ampicillin Sodium/ 3,000 MG Q6 09/08 0600 AC 09/10 Sulbactam Sodium IV 0526 Sodium Chloride 100 ML Atorvastatin Calcium 10 MG QPM 09/08 220 AC 09/09 PO 2111 Donepezil HCl 10 MG QPM 09/08 220 AC 09/09 PO 2111 Enoxaparin Sodium 40 MG DAILY 09/08 1000 AC 09/09 SC 1048 Ferrous Sulfate 325 MG DAILY 09/08 1000 AC 09/09 PO 1048 Finasteride 5 MG DAILY 09/08 1000 AC 09/09 PO 1048 Gabapentin 100 MG QPM 09/08 2199 AC 09/09 PO 2111 Metoprolol Succinate 25 MG DAILY 09/08 1000 AC 09/09 PO 1051 Olanzapine 2.5 MG Q8 PRN 09/08 1100 AC 09/09 PO 0059 Potassium Chloride 20 MEQ DAILY 09/08 1000 AC 09/09 PO 1048 Sodium Chloride 1,000 ML Q13H 09/08 1900 DC 09/08 IV 09/09 0759 1999 Assessment/Plan Assessment: Patient is a 85 YO M with PMH significant for Paroxysmal A.Fib not on warfarin due to fall risk (s/p pacemaker), HTN, HLD, bilteral chronic lymphaedema, sick sinus syndrome, 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 His daughter recently applied for [employer] ship, waiting for reply. He walks with a walker but appears more confused and unstable now. He is placed with sitter due to unsteadyness, confusion and disorientation. His vitals are stable overnight Labs are unremarkable at presentation. 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 * DC fluids. No sitter needed. * Regular diet started. Hyperlipidemia * At home on atorvastatin and fenofibrate * Discontinued fenofibrate and continued on atorvastatin Peripheral Neuropathy * Gabapentine 100mg QPM Dementia * His home medication Donepezil 10mg is continued Hypertension * His home medication Metoprolol succinate 25mg BID is continued BPH * His home medication finasteride 5mg is continued Overactive bladder * on solifenacin succinate at home * placed on oxybutynin now. Paroxysmal A.Fib * Not on anticoagulation due to fall risk * Underwent permanent pacemaker placement in the past. DVT Prophylaxis * [place] lovenox Code Status * DNR/DNI Problem List: 1. Diverticulitis large intestine Pain Ratin Pain Location: abdomen Pain Goal: Pain 4 or less Pain Plan: tylenol prn Tomorrow's Labs & Rationales: cbc- pt has been stable, No labs were drawn in the last 48hrs. To check H&H
[2016-09-10 09:21] VITALS: BP 142/70
--- NOTE | 2016-09-10 12:44 | PN- Att Addend ---
Attending Addendum Attending Brief Note Patient denies abdominal pain. Complaints of intermittent diarrhea. General Appearance: Alert, No Acute Distress Skin: Grossly normal HEENT: PEERLA Neck: Supple, No JVD Cardiovascular: Regular Rate, Normal S1, Normal S2, No Murmurs Lungs: Clear to Auscultation, Normal Air Movement Abdomen: Normal Bowel Sounds, Soft, No Tenderness Neurological: Normal Speech, Strength at 5/5 X4 Ext, Cranial Nerves 3-12 NL, Reflexes 2+ Extremities: No Clubbing, No Cyanosis, No Edema Vascular: Normal Pulses Assessment Patient denies abdominal pain, but complaining of intermittent diarrhea. Tolerating regular diet. We will continue IV antibiotics at this time and plan for discharge to rehabilitation tomorrow Plan Check C. difficile Continue IV Unasyn Continue other home meds STR placement on Sunday Current Medications Sig/Matthew Start time Last Medication Dose Route Stop Time Status Admin Acetaminophen 650 MG Q4P PRN 09/08 0045 AC PO Ampicillin Sodium/ 3,000 MG Q6 09/08 0600 AC 09/10 Sulbactam Sodium IV 0526 Sodium Chloride 100 ML Atorvastatin Calcium 10 MG QPM 09/08 2200 AC 09/09 PO 2112 Donepezil HCl 10 MG QPM 09/08 2200 AC 09/09 PO 2112 Enoxaparin Sodium 40 MG DAILY 09/08 1000 AC 09/10 SC 1007 Ferrous Sulfate 325 MG DAILY 09/08 1000 AC 09/10 PO 1006 Finasteride 5 MG DAILY 09/08 1000 AC 09/10 PO 1006 Gabapentin 100 MG QPM 09/08 2200 AC 09/09 PO 2112 Metoprolol Succinate 25 MG DAILY 09/08 1000 AC 09/10 PO 1006 Olanzapine 2.5 MG Q8 PRN 09/08 1100 AC 09/09 PO 0059 Potassium Chloride 20 MEQ DAILY 09/08 1000 AC 09/10 PO 1006 Vital Signs Date Time Temp Pulse Resp B/P Pulse O2 O2 Flow FiO2 Ox Delivery Rate 09/10 1006 73 142/70 09/10 0921 97.6 73 18 142/70 97 Room Air 09/10 0600 98 154/92 09/10 0023 98.3 78 20 150/104 96 09/09 1733 97.3 74 20 167/92 96 Room Air
[2016-09-10 16:19] VITALS: BP 130/78
[2016-09-11 00:36] VITALS: BP 142/98
--- NOTE | 2016-09-11 07:02 | PN- Housestaff ---
Subjective Follow-up For: Acute sigmoid colon diverticulitis Subjective: I saw and examined the patient today morning He is doing much better, able to sit in the chair, making conversations. He denies any nausea, vomiting, fever, able to tolerate food well. No overnight fevers. Review of Systems Constitutional: Reports: see HPI, malaise, weakness. Denies: chills, diaphoresis, fever. Comments: ROS negative except the above. Objective Last 24 Hrs of Vital Signs/I&O Vital Signs Date Time Temp Pulse Resp B/P Pulse O2 O2 Flow FiO2 Ox Delivery Rate 09/11 0036 97.7 76 20 142/98 97 09/10 1619 60 18 130/78 97 Room Air 09/10 1006 73 142/70 09/10 0921 97.6 73 18 142/70 97 Room Air Intake & Output 09/11 0800 09/11 0000 09/10 1600 Intake Total 200 1260 Output Total 275 Balance -75 1260 Intake, IV 200 120 Intake, Oral 1140 Number 1 Bowel Movements Output, Urine 275 Physical Exam General Appearance: Alert, Oriented X3, Cooperative, No Acute Distress Skin: No Rashes, No Breakdown HEENT: Atraumatic, PERRLA Neck: Supple Cardiovascular: Normal S1, Normal S2, systolic murmur present Lungs: Clear to Auscultation, Normal Air Movement Abdomen: Normal Bowel Sounds, Soft, No Tenderness Neurological: Normal Speech, Normal Tone Extremities: No Clubbing, No Cyanosis Vascular: Normal Pulses Current Medications: Current Medications Sig/Matthew Start time Last Medication Dose Route Stop Time Status Admin Acetaminophen 650 MG Q4P PRN 09/08 0045 AC PO Ampicillin Sodium/ 3,000 MG Q6 09/08 0600 AC 09/11 Sulbactam Sodium IV 0545 Sodium Chloride 100 ML Atorvastatin Calcium 10 MG QPM 09/08 2200 AC 09/10 PO 2222 Donepezil HCl 10 MG QPM 09/08 2200 AC 09/10 PO 2222 Enoxaparin Sodium 40 MG DAILY 09/08 1000 AC 09/10 SC 1007 Ferrous Sulfate 325 MG DAILY 09/08 1000 AC 09/10 PO 1006 Finasteride 5 MG DAILY 09/08 1000 AC 09/10 PO 1006 Gabapentin 100 MG QPM 09/08 2200 AC 09/10 PO 2222 Metoprolol Succinate 25 MG DAILY 09/08 1000 09/10 PO 1006 Olanzapine 2.5 MG Q8 PRN 09/08 1100 AC 09/09 PO 0059 Potassium Chloride 20 MEQ DAILY 09/08 1000 AC 09/10 PO 1006 Last 24 Hrs of Lab/Chris Results Last 24 Hrs of Labs/Mics: Laboratory Tests 09/11/16 0636: CBC w Diff Pending, WBC Pending, RBC Pending, Hgb Pending, Hct Pending, MCV Pending, MCH Pending, RDW Pending, Plt Count Pending, MPV Pending, PUBS MCHC Pending Microbiology 09/10 1325 STOOL: Clostridium difficile Toxin A & B - COLB Lines/Diet/Fluids Lines: peripheral lines Assessment/Plan Assessment: Patient is a 85 YO M with PMH significant for Paroxysmal A.Fib not on warfarin due to fall risk (s/p pacemaker), HTN, HLD, bilteral chronic lymphaedema, sick sinus syndrome, 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 His daughter recently applied for [employer] ship, waiting for reply. He walks with a walker but appears more confused and unstable now. He is placed with sitter due to unsteadyness, confusion and disorientation. His vitals are stable overnight Labs are unremarkable at presentation. 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 * Regular diet started. * Stool C.diff not sent, discontinued isolation precautions today. Hyperlipidemia * At home on atorvastatin and fenofibrate * Discontinued fenofibrate and continued on atorvastatin Peripheral Neuropathy * Gabapentine 100mg QPM Dementia * His home medication Donepezil 10mg is continued Hypertension * His home medication Metoprolol succinate 25mg BID is continued BPH * His home medication finasteride 5mg is continued Overactive bladder * on solifenacin succinate at home * placed on oxybutynin now. Paroxysmal A.Fib * Not on anticoagulation due to fall risk * Underwent permanent pacemaker placement in the past. DVT Prophylaxis * [place] lovenox Code Status * DNR/DNI Problem List: 1. Weakness 2. Diverticulitis 3. Dementia 4. Gait instability Pain Ratin Pain Location: n/a Pain Goal: Pain 4 or less Pain Plan: Tylenol PRN Tomorrow's Labs & Rationales: None
[2016-09-11 08:01] LABS: ABSOLUTE BASOPHIL COUNT 0 /CUMM (0.0-0.2); ABSOLUTE EOSINOPHIL COUNT 0.4 /CUMM (0.0-0.7); ABSOLUTE GRANULOCYTE CT 4.8 /CUMM (1.4-6.5); ABSOLUTE LYMPH COUNT 1.7 /CUMM (1.2-3.4); BASOPHIL % 0.1 % (0.0-2.0); EOSINOPHIL % 4.7 % (0-5); GRANULOCYTE % 60.5 % (42.2-75.2); HEMATOCRIT 45.4 % (42-52); MEAN CORPUSCULAR HGB 33.2 PG (27.0-31.0); MEAN CORPUSCULAR HGB CONC 33.5 G/DL (33.0-37.0); MEAN CORPUSCULAR VOLUME 98.9 FL (80.0-94.0); MEAN PLATELET VOLUME 8.2 FL (7.4-10.4); PLATELET COUNT 186 /CUMM (130-400); RBC DISTRIBUTION WIDTH 14.7 % (11.5-14.5); RED BLOOD CELL CT 4.59 /CUMM (4.70-6.10); WHITE BLOOD CELL COUNT 7.9 /CUMM (4.8-10.8)
[2016-09-11 08:38] VITALS: BP 170/110
[2016-09-11] MEDS ORDERED: AUGMENTIN 875-1 EACH PO ×2 (10:29→10:34)
--- NOTE | 2016-09-11 10:49 | PN- Pulmonary ---
Subjective HPI/Critical Care Issues: Stable No sig diarrhea Fatigued Objective Current Medications: Current Medications Sig/Matthew Start time Last Medication Dose Route Stop Time Status Admin Acetaminophen 650 MG Q4P PRN 09/08 0045 AC PO Ampicillin Sodium/ 3,000 MG Q6 09/08 0600 AC 09/11 Sulbactam Sodium IV 0910 Sodium Chloride 100 ML Atorvastatin Calcium 10 MG QPM 09/08 2200 AC 09/10 PO 2222 Donepezil HCl 10 MG QPM 09/08 2200 AC 09/10 PO 2222 Enoxaparin Sodium 40 MG DAILY 09/08 1000 AC 09/11 SC 0907 Ferrous Sulfate 325 MG DAILY 09/08 1000 AC 09/11 PO 0907 Finasteride 5 MG DAILY 09/08 1000 AC 09/11 PO 0907 Gabapentin 100 MG QPM 09/08 2200 AC 09/10 PO 2222 Metoprolol Succinate 25 MG DAILY 09/08 1000 AC 09/11 PO 0910 Olanzapine 2.5 MG Q8 PRN 09/08 1100 AC 09/09 PO 0059 Potassium Chloride 20 MEQ DAILY 09/08 1000 AC 09/11 PO 0907 Vital Signs & I&O Last 24 Hrs of Vitals and I&O: Vital Signs Date Time Temp Pulse Resp B/P Pulse O2 O2 Flow FiO2 Ox Delivery Rate 09/11 0910 60 170/110 09/11 0838 98.1 60 20 170/110 93 Room Air 09/11 0036 97.7 76 20 142/98 97 09/10 1619 60 18 130/78 97 Room Air Intake & Output 09/11 1600 09/11 0800 09/11 0000 Intake Total 200 Output Total 275 Balance -75 Intake, IV 200 Output, Urine 275 Impression/Plan Impression/Plan Impression/Plan: Physical Exam General Appearance: Alert, Cooperative, No Acute Distress, oriented x 1, not to place and time. Skin: No Rashes, No Breakdown HEENT: Atraumatic, PERRLA Neck: Supple Cardiovascular: S1 and S2 heard, irregularly irregular Lungs: Clear to Auscultation, Normal Air Movement Abdomen: Normal Bowel Sounds, No Tenderness, distended Neurological: Normal Speech, Normal Tone, Sensation Intact Extremities: No Clubbing, No Cyanosis, 3+ pitting edema over both the feet Vascular: Normal Pulses, Pulses Symmetrical This is a gentleman with paroxysmal atrial fibrillation on warfarin, previous pacemaker, mild dementia, diastolic heart disease, bilateral chronic lymphedema with chronic venous insufficiency with chronic skin changes in the leg, right heart dysfunction, BPH, came into the hospital with abd pain and diarrhea with a fall Issues include * Diverticulitis with abd pain * Dehydration * Paroxysmal atrial fibrillation with previous sick sinus syndrome status post pacemaker was on warfarin which is now being held due to recurrent fall * Hypertension hyperlipidemia stable * Chronic venous insufficiency and lower extremity edema which is also better with chronic venostasis changes as well which is stable * Mild dementia, with sundowning with delirium * Essential tremor gait imbalance * BPH * Stage II chronic kidney disease Plan * Continue antibiotics po for seven days * Check labs only if needed * Zyprexa 2.5 mg by mouth every 8 when necessary only for significant confusion * Patient obviously is not safe to go back home as he has worsening dementia and memory difficulty gait imbalance would benefit from short-term rehabilitation * Continue current medications. Discontinue fenofibrate. DNR/DNI
[2016-09-11 13:57] VITALS: BP 126/74
[2016-09-11 17:32] VITALS: BP 126/74
== END 2016-09-11 18:55 | DRG 392 ==
LOC: ENRESERVDT → ENRESERVTM → ERH 12:42 → ERHI 19:39 → 2NB 19:39
PROVIDERS: Emergency Medicine; Internal Medicine; Internal Medicine Endocrinology, Diabetes & Metabolism; ADMIT Internal Medicine Pulmonary Disease
DX: K57.92 Diverticulitis of intestine, part unspecified, without perforation or abscess without bleeding (principal); F03.90 Unspecified dementia, unspecified severity, without behavioral disturbance, psychotic disturbance, mood disturbance, and anxiety; F05 Delirium due to known physiological condition; I13.0 Hypertensive heart and chronic kidney disease with heart failure and stage 1 through stage 4 chronic kidney disease, or unspecified chronic kidney disease; I50.32 Chronic diastolic (congestive) heart failure; I48.91 Unspecified atrial fibrillation; E86.0 Dehydration; N18.2 Chronic kidney disease, stage 2 (mild); I89.0 Lymphedema, not elsewhere classified; I10 Essential (primary) hypertension; E78.5 Hyperlipidemia, unspecified; Z79.01 Long term (current) use of anticoagulants; Z95.0 Presence of cardiac pacemaker; N40.0 Benign prostatic hyperplasia without lower urinary tract symptoms
CPT/HCPCS: 2NBP; 36415; 74177; 81003; 82436; 87045; 93005; 93010; 96361; 96374; 97116-GO; 97530-GO; J1650; J7040; J7060